=== PATIENT | female | born 1935 | race Caucasian/White ===

== ENCOUNTER → 2017-03-02 | Outpatient (CLI) | payer OTHER ==
[~2017-03-02] MED LIST: ATOR10TA9 PO; BUPR75TA6 PO; FURO20TA3 PO; HYDR12.53 PO; LEVO25TA4 PO
== END | disposition home or self-care (01) ==
LOC: RAD 17:14
PROVIDERS: ATTEND Nurse Practitioner
DX: M51.36 Other intervertebral disc degeneration, lumbar region (principal); M43.16 Spondylolisthesis, lumbar region
CPT/HCPCS: 72110

== ENCOUNTER → 2018-04-05 | Outpatient (CLI) | payer OTHER | END | disposition home or self-care (01) | LOC: RAD 14:26 | PROVIDERS: ATTEND Family Medicine | DX: M16.11 Unilateral primary osteoarthritis, right hip (principal); M51.36 Other intervertebral disc degeneration, lumbar region; M47.896 Other spondylosis, lumbar region | CPT/HCPCS: 72110 ==

== ENCOUNTER → 2018-04-29 | Outpatient (CLI) | payer OTHER | END | disposition home or self-care (01) | LOC: CFH 08:39 | PROVIDERS: ATTEND Internal Medicine Nephrology | DX: N18.3 Chronic kidney disease, stage 3 (moderate) (principal) | CPT/HCPCS: 93975 ==

== ENCOUNTER 2018-04-30 07:16 | Emergency (ER) | payer OTHER ==
[~2018-04-30] VITALS: Ht 157.5 cm; Wt 69.7 kg
[2018-04-30 07:59] LABS: BASOPHILS # (AUTO) 0.05 x10^3/uL (0-0.1); BASOPHILS % (AUTO) 1 % (0-1); EOSINOPHILS # (AUTO) 0.65 x10^3/uL (0-0.4); EOSINOPHILS % (AUTO) 7 % (1-7); LYMPHOCYTES # (AUTO) 1.64 x10^3/uL (1-3.4); LYMPHOCYTES % (AUTO) 17 % (22-44); MD NO; MEAN CORPUSCULAR HGB CONC 33.3 g/dL (32.4-35.8); MEAN CORPUSCULAR VOLUME 90.2 fL (80-100); MEAN PLATELET VOLUME 7.9 fL (7.4-10.4); MONOCYTES # (AUTO) 0.66 x10^3/uL (0.2-0.8); MONOCYTES % (AUTO) 7 % (2-9); NEUTROPHILS # (AUTO) 6.43 x10^3/uL (1.8-6.8); NEUTROPHILS % (AUTO) 68 % (42-75); PLATELET COUNT 237 x10^3/uL (130-400); RED BLOOD COUNT 4.36 x10^6/uL (3.82-5.3); RED CELL DISTRIBUTION WIDTH 13.5 % (9.6-15.2)
[2018-04-30 08:08] LABS: ALANINE AMINOTRANSFERASE 17 U/L (12-78); ALBUMIN 3.2 g/dL (3.4-5.0); ANION GAP 10 mmol/L (5-15); CALCIUM 8.4 mg/dL (8.5-10.1); CHLORIDE 106 mmol/L (98-107); CREATININE 1.23 mg/dL (0.55-1.02)
[2018-04-30 08:10] LABS: ALKALINE PHOSPHATASE 122 U/L (45-117); BILIRUBIN,TOTAL 0.5 mg/dL (0.2-1.0); TOTAL PROTEIN 6.7 g/dL (6.4-8.2)
[2018-04-30 08:50] LABS: MICROSCOPIC NOT IND
[2018-04-30 08:51] LABS: CULTURE INDICATED? NO
[2018-04-30] MEDS ORDERED: POTASSIUM CHLORIDE 20 MEQ PACKET PO ONE (09:00)
[2018-04-30] MEDS ORDERED: POTASSIUM CHLORIDE 20 MEQ PACKET ONE (09:14)
[2018-04-30] MEDS ORDERED: PINK LADY ENEMA 490 ML BOTTLE PR ONE (10:30)
[2018-04-30 12:30] VITALS: BP 138/78
== END 2018-04-30 13:37 | disposition home or self-care (01) ==
LOC: ED 08:07
DX: K59.00 Constipation, unspecified (principal); K64.8 Other hemorrhoids; R33.9 Retention of urine, unspecified; E03.9 Hypothyroidism, unspecified; I12.9 Hypertensive chronic kidney disease with stage 1 through stage 4 chronic kidney disease, or unspecified chronic kidney disease; N18.9 Chronic kidney disease, unspecified; Z88.6 Allergy status to analgesic agent; Z90.710 Acquired absence of both cervix and uterus
CPT/HCPCS: 36415; 74021; 74176; 80053; 81003; 85025; 99285

== ENCOUNTER 2019-02-04 20:29 | Emergency (ER) | payer MEDICARE, OTHER ==
[~2019-02-04] VITALS: Ht 157.5 cm; Wt 70.4 kg
[~2019-02-04 20:29] MED LIST changes: +HYDR12.517 PO; -HYDR12.53 PO
[2019-02-04 20:33] VITALS: BP 170/90
--- NOTE | 2019-02-04 20:37 | NUR ---
ANDREW IS RED AND SWOLLEN, DENIES INJURY, TREATING PAIN WITH TYLENOL, NO WOUNDS NOTED.
[2019-02-04] MEDS ORDERED: INDOMETHACIN 50 MG CAPSULE ONE (21:07)
[2019-02-04] MEDS ORDERED: COLCHICINE 0.6 MG CAPSULE ONE (21:07)
--- NOTE | 2019-02-04 21:23 | NUR ---
DC EDUCATION PROVIDED, PT DEMONSTRATES UNDERSTANDING. PT AMBULATED TO DC WITH RN AND FAMILY USING OWN WALKER. FAMILY TO TRANSPORT PT HOME.
[2019-02-04] MEDS ORDERED: COLCHICINE 0.6 MG CAPSULE PO ONE (21:30)
[2019-02-04] MEDS ORDERED: COLCHICINE 0.6 MG TABLET PO ONE (21:30)
[2019-02-04] MEDS ORDERED: INDOMETHACIN 50 MG CAPSULE PO ONE (21:30)
== END 2019-02-04 21:26 | disposition home or self-care (01) ==
LOC: ED 21:16
DX: M10.041 Idiopathic gout, right hand (principal); E03.9 Hypothyroidism, unspecified; F32.9 Major depressive disorder, single episode, unspecified; N18.9 Chronic kidney disease, unspecified
CPT/HCPCS: 99283; J7512

== ENCOUNTER → 2019-10-05 | Outpatient (CLI) | payer MEDICARE | END | disposition home or self-care (01) | LOC: CVU 10:28 | PROVIDERS: ATTEND Family Medicine | DX: H53.122 Transient visual loss, left eye (principal); I08.0 Rheumatic disorders of both mitral and aortic valves; I12.9 Hypertensive chronic kidney disease with stage 1 through stage 4 chronic kidney disease, or unspecified chronic kidney disease; N18.3 Chronic kidney disease, stage 3 (moderate); R60.9 Edema, unspecified; I70.0 Atherosclerosis of aorta; M10.9 Gout, unspecified; E21.3 Hyperparathyroidism, unspecified; E03.9 Hypothyroidism, unspecified; M17.12 Unilateral primary osteoarthritis, left knee; I73.9 Peripheral vascular disease, unspecified; N28.9 Disorder of kidney and ureter, unspecified; F32.5 Major depressive disorder, single episode, in full remission | CPT/HCPCS: 93225; 93226; 93306; 93356 ==

== ENCOUNTER 2020-04-17 12:07 | Emergency (ER) | payer MEDICARE ==
[~2020-04-17] VITALS: Ht 157.5 cm; Wt 71.0 kg
--- NOTE | 2020-04-17 13:00 | NUR ---
ABLE TO DRAW BLOOD OFF IV START. BLOOD SENT TO LAB. PT ON VITALS MONITORS. FAMILY AT BEDSIDE.
[2020-04-17] MEDS ORDERED: ASPI-515 PO (13:02)
[2020-04-17] MEDS ORDERED: VITAMIN B12 INJ (13:02)
[2020-04-17] MEDS ORDERED: CARV3.1212 PO (13:02)
[2020-04-17] MEDS ORDERED: ALLO100T64 PO (13:02)
[2020-04-17 13:29] LABS: BASOPHILS # (AUTO) 0.05 x10^3/uL (0-0.1); BASOPHILS % (AUTO) 1 % (0-1); EOSINOPHILS # (AUTO) 0.81 x10^3/uL (0-0.4); EOSINOPHILS % (AUTO) 9 % (1-7); LYMPHOCYTES # (AUTO) 2.28 x10^3/uL (1-3.4); LYMPHOCYTES % (AUTO) 25 % (22-44); MD NO; MEAN CORPUSCULAR HEMOGLOBIN 29.3 pg (27.0-34.8); MEAN CORPUSCULAR HGB CONC 31.6 g/dL (32.4-35.8); MEAN CORPUSCULAR VOLUME 92.8 fL (80-100); MEAN PLATELET VOLUME 8.9 fL (7.4-10.4); MONOCYTES # (AUTO) 0.68 x10^3/uL (0.2-0.8); MONOCYTES % (AUTO) 8 % (2-9); NEUTROPHILS # (AUTO) 5.31 x10^3/uL (1.8-6.8); NEUTROPHILS % (AUTO) 58 % (42-75); PLATELET COUNT 215 x10^3/uL (130-400); RED BLOOD COUNT 4.66 x10^6/uL (3.82-5.3); RED CELL DISTRIBUTION WIDTH 15.7 % (9.6-15.2)
[2020-04-17] MEDS ORDERED: SODIUM CHLORIDE FLUSH 10ML SYR IVF ONE (13:30)
[2020-04-17 13:42] LABS: ALBUMIN 3.6 g/dL (3.4-5.0); ANION GAP 7 mmol/L (5-15); CHLORIDE 107 mmol/L (98-107); CREATININE 1.07 mg/dL (0.55-1.02)
[2020-04-17 13:47] LABS: ALKALINE PHOSPHATASE 149 U/L (45-117); BILIRUBIN,TOTAL 0.5 mg/dL (0.2-1.0); TOTAL PROTEIN 7.7 g/dL (6.4-8.2); TROPONIN I < 0.015 ng/mL (0.000-0.045)
[2020-04-17 13:59] LABS: ALANINE AMINOTRANSFERASE 24 U/L (12-78)
--- NOTE | 2020-04-17 14:37 | NUR ---
BREAK RN: PT AT CT
--- NOTE | 2020-04-17 14:44 | NUR ---
BREAK RN: PAM SENT. FAMILY AT BEDSIDE. NO ACUTE DISTRESS NOTED. CALL LIGHT IN PLACE. WILL CONTINUE TO MONITOR.
[2020-04-17 14:58] LABS: MICROSCOPIC INDICATED
--- NOTE | 2020-04-17 15:43 | NUR ---
PT REMAINS IN IMAGING
[2020-04-17 17:12] VITALS: BP 186/79
== END 2020-04-17 17:14 | disposition home or self-care (01) ==
LOC: ED 13:14
DX: R42 Dizziness and giddiness (principal); H70.001 Acute mastoiditis without complications, right ear; R51 Headache; R94.31 Abnormal electrocardiogram [ECG] [EKG]
CPT/HCPCS: 36415; 70450; 70551; 80053; 81001; 84484; 85025; 87086; 93005; 99285